=== PATIENT | female | born 1995 | race Two or more races ===

== ENCOUNTER 2019-12-03 05:19 | Outpatient (CLI) | payer OTHER ==
[2019-12-03] MEDS ORDERED: KEFLEX500 MG PO (08:43)
[2019-12-03] MEDS ORDERED: PEPCID AC20 MG PO (08:43)
== END 2019-12-03 11:37 | disposition home or self-care (01) ==
LOC: OBS/DEL 05:19 → EDBD 05:19 → OBS/DEL 06:32
PROVIDERS: ATTEND Obstetrics & Gynecology
DX: O09.32 Supervision of pregnancy with insufficient antenatal care, second trimester (principal); O99.352 Diseases of the nervous system complicating pregnancy, second trimester; G40.909 Epilepsy, unspecified, not intractable, without status epilepticus; O23.42 Unspecified infection of urinary tract in pregnancy, second trimester